=== PATIENT | female | born 1940 | race Caucasian/White ===

== ENCOUNTER 2018-03-03 09:36 | Emergency (ER) | payer MEDICARE, SELFPAY ==
[2018-03-03 09:44] VITALS: BP 163/89; PULSE 105; RESP 24; TEMP 36.3; O2SAT 95; BMI 36.5
--- NOTE | 2018-03-03 09:48 | ED.ALLEREA ---
HPI - Allergic Reaction General Chief complaint: Allergic Reaction Stated complaint: PT STATES ALLERGIC REACTION TO POSSIBLE MEDICATION Time Seen by Provider: 03/03/18 09:47 Source: patient Mode of arrival: ambulatory Limitations: no limitations History of Present Illness HPI narrative: 78-year-old female here for evaluation of which she thinks is an allergic reaction. Patient states that on Thursday she started have back pain. Took multiple doses of anti-inflammatories. Sometime throughout the day started noticing that her tongue was swelling. No rashes. No problems breathing. No problems tolerating oral intake. Never anything like this before. No other new exposures. States that she has been taking Benadryl since then and she states that her symptoms improve after taking the Benadryl but then return. Related Data Previous Rx's Medication Instructions Recorded prednisone 40 mg PO DAILY #8 tab 03/03/18 Allergies Allergy/AdvReac Type Severity Reaction Status Date / Time Penicillins AdvReac Verified 03/03/18 10:15 Review of Systems Constitutional Denies chills, Denies fever(s), Denies lethargy and Denies weakness ENT Ears, Nose, Mouth, and Throat: Denies change in voice, Denies dental pain, Denies otalgia, Denies hoarseness, Denies lip swelling, Denies mouth lesions, Denies mouth pain, Denies nasal discharge, Denies neck pain, Denies disequilibrium and Denies sore throat Comments: Swollen tongue Cardiovascular Denies chest pain, Denies irregular heart rhythm, Denies lightheadedness, Denies palpitations, Denies dyspnea, Denies dyspnea on exertion and Denies orthopnea Respiratory Denies cough, Denies dyspnea, Denies dyspnea on exertion and Denies wheezing Gastrointestinal Gastrointestinal: Denies abdominal pain, Denies change in bowel habits, Denies diarrhea, Denies nausea and Denies vomiting Musculoskeletal Denies neck pain Integumentary/Breasts Denies pruritus, Denies erythema, Denies rash and Denies wounds Neurologic Denies disequilibrium and Denies weakness Endocrine Denies palpitations Hematologic/Lymphatic Denies easy bruising Allergic/Immunologic Denies lip swelling and Denies wheezing Exam Const General: cooperative and well developed Nutritional Appearance: well nourished Orientation: alert, awake, oriented x3 and not confused HENMT Head: normal to inspection and normocephalic Ears: hearing grossly normal bilaterally and TM's normal bilaterally Nose: external nose normal, nares normal and No epistaxis Mouth: oral mucosae normal, tongue normal (Left-sided tongue seems more swollen than right. Patient with numbness on the right side of her tongue. Normal sensation left side), oropharynx normal, No drooling, No malodorous breath and muffled voice Teeth and gingiva: dentition normal and gingiva normal Throat: posterior oropharynx normal and uvula midline Eyes General: appearance normal, both eyes and all related structures Eyelids: eyelids normal Conjunctivae: conjunctivae normal Sclera: sclerae normal Pupils: PERRL EOM: EOM intact bilaterally Chest Chest: normal inspection of the chest Resp Effort & Inspection: normal respiratory effort, able to speak in complete sentences, no respiratory distress and no use of accessory muscles Auscultation: clear to auscultation bilaterally, no rales, no rhonchi and no wheezes Cardio Rate: regular rate Rhythm: regular rhythm Heart Sounds: no click, no gallops, no murmurs and no rubs Pulses: normal peripheral pulses Skin General: no rashes or lesions noted, No jaundice and No petechiae Neuro General: alert, oriented x3, oriented, gait normal, tone normal, moves all extremities, CN's II-XI not intact bilaterally (Cranial nerves intact except for patient seems to deviate her tongue to the left upon protrusion), not confused and not obtunded Extrem General: full ROM, no clubbing, cyanosis or edema, no pedal edema and no calf tenderness Course Orders Ordered: Discontinued Medications Prednisone (Deltasone) 40 mg PO NOW ONE Stop: 03/03/18 10:07 Last Vital Signs Temp 97.4 F L 03/03/18 09:44 Pulse 105 H 03/03/18 09:44 Resp 24 03/03/18 09:44 BP 163/89 H 03/03/18 09:44 Pulse Ox 95 03/03/18 09:44 MDM - Allergic Reaction MDM Narrative Medical decision making narrative: Patient with a normal exam except for decreased sensation to the right side of her tongue and also seems to deviate her tongue to the left. Left side of her tongue seems to be more swollen compared to the right side. Has a normal cranial nerve exam otherwise. Considered central neurologic process secondary to her symptoms however patient does state that her symptoms do improve with Benadryl which is not consistent with a CVA. She has no other signs of anaphylaxis. Is tolerating oral secretions. Has no respiratory distress. Does have a follow-up with her primary doctor tomorrow morning at 8 o'clock. Is not on any medications that are classically precursor is to things like angioedema. Will give prednisone here in the emergency department. Will send home with another 4 days of prednisone. Informed the patient that if she develops any new symptoms she needs to return to the emergency department. She expressed understanding and agreement with plan. Discharge Plan Departure Patient Disposition: Home, Self-Care Clinical Impression: Allergic reaction Instructions: DI for General Allergic Reactions Activity Restrictions/Additional Instructions: Take all the medications as instructed. Keep her follow-up appointment with her primary doctor tomorrow. It is okay for you to fly home as long as he do not develop any other new symptoms. Return to the emergency department for any worsening symptoms. Prescriptions: New prednisone 20 mg tablet 40 mg PO DAILY Qty: 8 RF: 0
[2018-03-03] MEDS: predniSONE 20 MG TABLET 40 MG PO (10:16)
[2018-03-03 10:29] VITALS: BP 147/74; PULSE 93; RESP 14; O2SAT 99
== END 2018-03-03 10:31 | disposition home or self-care (01) ==
PROVIDERS: Emergency Provider Emergency Medicine
DX: T78.40XA Allergy, unspecified, initial encounter (principal)
CPT/HCPCS: 99282